=== PATIENT | female | born 1940 | race Caucasian/White ===

== ENCOUNTER 2016-08-19 17:07 | Inpatient (IN) | payer MEDICARE, OTHER ==
--- NOTE | ~2016-08-19 | HP ---
Unit #: [id number] #: [id number] Patient: SHAWN WEST [id number] [id number] [facility] [place] [facility]. [place], [place] [address] [id number] I MR#: [id number] NAME: SHAWN WEST ROOM: 302 Age: 75 Sex: F Admission Date: 08/19/2016 : 1940 Attending Physician: Octavio Teixeira M.D. Referring Physician: Ana Paula Hinkle A.P.R.N. Primary Care Physician: Ana Paula Hinkle A.P.R.N. HISTORY AND PHYSICAL CHIEF COMPLAINT Altered mental status. HISTORY OF PRESENTING ILLNESS A 75-year-old female with multiple medical problems was transferred from a senior care with altered mental status. Patient was not able to provide any history, so I have called patient's senior care and a nurse. She gave me most of the history. For the last two weeks or so, patient has had altered mental status which is gradually going down. She has been refusing hemodialysis, and she has been refusing to eat. Patient was even admitted at [facility] in June 2016 for something like the same kind of problem, mental status changes and history of fall. No complaint of nausea or vomiting, no complaint of any abdominal pain or chest pain, no complaint of diarrhea, and no other issues according to the nurse. We are not able to contact patient's family. She does not have the phone number for the family, and they do not visit her much. They were supposed to take her home, but that was somehow cancelled. PAST MEDICAL HISTORY 1. Hypertension. 2. Hyperlipidemia. 3. Chronic hepatitis C. 4. History of sarcoidosis. 5. End-stage renal disease, on hemodialysis. 6. Major depression. 7. Hyperparathyroidism. PAST SURGICAL HISTORY Hysterectomy. HOME MEDICATIONS 1. Vitamin B12 at 1000 mcg daily. 2. Aspirin 81 mg daily. 3. Renal softgel daily. 4. Famotidine 20 mg daily. 5. Ferrex 1 capsule daily. 6. Coreg 6.25 mg b.i.d. 7. Neurontin 100 mg twice daily. 8. Plaquenil 200 mg twice daily. 9. Remeron 7.5 mg at bedtime. 10. Atorvastatin 80 mg daily. 11. Levemir 20 units subcutaneous daily. 12. Glucagon p.r.n. 13. Nitroglycerin p.r.n. Unit #: [id number] #: [id number] Patient: SHAWN WEST 14. Dulcolax p.r.n. ALLERGIES No known drug allergies. SOCIAL HISTORY Patient is a resident of a senior care at this time. Unable to find whether she has any smoking history or alcohol history. REVIEW OF SYSTEMS As per History of Presenting Illness. PHYSICAL EXAMINATION GENERAL: She is lying comfortably in bed and does not seem to be in any respiratory distress. VITAL SIGNS: Blood pressure is 128/79, respiratory rate 18, pulse 101, and temperature 98.5. HEENT: Head is normocephalic. CHEST: Fair air entry. CARDIOVASCULAR: S1 and S2 positive. Regular rhythm. ABDOMEN: Soft. EXTREMITIES: Negative edema although exam was very limited. DIAGNOSTIC STUDIES LABORATORY: Ammonia is 34, sodium 136, potassium 4.4, chloride 107, BUN 48, and creatinine 5.9. Liver enzymes are stable. WBC 10.1, hemoglobin 10.7, hematocrit 31.7, and platelet count of 193,000. Lactic acid 1.1. Urine drug screen was negative. IMAGING: CT scan of the head without contrast was done which shows no acute intracranial abnormality suspected. ASSESSMENT AND PLAN Patient is being admitted to telemetry unit with a diagnosis of: 1. Altered mental status, possible metabolic encephalopathy, rule out any infectious etiology. 2. Chronic kidney disease, on hemodialysis. Patient has been very noncompliant, has been refusing in the senior care. Nephrology will be consulted, and hemodialysis will be continued. 3. Possible urinary tract infection. Urine culture is pending. 4. Diabetes mellitus type 2. Accu-Cheks a.c. and at bedtime with insulin sliding scale. 5. Hypertension which is stable. 6. Hyponatremia which has improved since yesterday. 7. Major depression. Dr. Kruger will be consulted. 8. Deep venous thrombosis prophylaxis is being started. 9. Social work evaluation will be done to get hold of patient's family. Discharge Summary from [facility] will be obtained. 1. Dictated by Anna Reddy TD: 08/20/2016 17:08 JOB #: [id number] Unit #: [id number] #: [id number] Patient: SHAWN WEST HISTORY AND PHYSICAL X Jane Christine MD X HISTORY AND PHYSICAL
--- NOTE | ~2016-08-19 | CR72 ---
[facility] A Service of [facility] RADIOLOGY TEXT RESULTS PATIENT: SHAWN WEST LOCATION: [facility] 302-01 : 42 UNIT #: [id number] AGE: [address]: Octavio Teixeira MD SEX: F ORDER DR: [id number] [facility] [address] [facility]. [place], [place] [address] [id number] I MR#: [id number] Acc #: [id number] NAME: SHAWN WEST : 1940 SEX: F STUDY DATE/TIME: 08/19/2016 17:00 UNIT: [address] ROOM: [facility] STUDY DESCRIPTION: CR Chest Single View Portable Attending Physician: Octavio Teixeira M.D. Referring Physician: Jacquelin Hinkle Ordering Physician: Alisson Rowland M.D. Primary Care Physician: Jacquelin Hinkle MEDICAL IMAGING REPORT This report is preliminary unless electronic signature is present EXAM Portable chest INDICATIONS 75-year-old female with altered mental status today, unconscious patient. COMPARISON 07/17/2016 FINDINGS There is bilateral interstitial prominence. This is stable. There are no new infiltrates. Heart size is stable. Suspected hiatal hernia. IMPRESSION No acute findings in the chest. No significant change from 07/17/2016. Dictated by... Chepe Faust M.D. THIS IS AN ELECTRONICALLY VERIFIED REPORT Chepe Faust M.D. at 08/20/2016 10:04 AM ARS/marry TD: 08/19/2016 22:56 JOB #: [id number] MEDICAL IMAGING REPORT COPY
--- NOTE | ~2016-08-19 | EKG ---
PATIENT: SHAWN WEST UNIT #: [id number] Ventricular Rate: 84 BPM Atrial Rate: 84 BPM P-R Interval: 144 ms QRS Duration: 84 ms Q-T Interval: 400 ms QTC Calculation(Bezet): 472 ms P Jumping [place]: 17 degrees Calculated R Jumping [place]: 11 degrees Calculated T Jumping [place]: 25 degrees Diagnosis Line: Normal sinus rhythm Diagnosis Line: Normal ECG Diagnosis Line: No previous ECGs available Diagnosis Line: Confirmed by MONA DE LOS SANTOS MD ([id number]) on 08/20/2016 Diagnosis Line: 7:11:35 AM INTERPRETING MD: MAGALI CASTILLO
--- NOTE | ~2016-08-19 | CO ---
Unit #: [id number] #: [id number] Patient: LAVERN AVALOS [id number] [facility] [address] [facility]. [place], [place] [address] [id number] I MR#: [id number] NAME: LAVERN AVALOS ROOM: 302 Age: 75 Sex: F Admission Date: 08/19/2016 : 1940 Attending Physician: Octavio Teixeira M.D. Primary Care Physician: Ana Paula Hinkle A.P.R.N. Consultation Date: 08/20/2016 CONSULTATION REPORT REASON FOR CONSULTATION Severe depression, anxiety. HISTORY OF PRESENT ILLNESS Ms. Lavern Avalos is a 75-year-old -Polish female seen in room 302 [address] of [facility]. The patient was admitted from a assisted on 08/19/16. The patient was admitted with the altered mental status. The patient was lying comfortably in bed, dressed in hospital attire. Patient constantly saying "somebody clean me." The patient seemed somewhat anxious, nervous. Patient was transferred from assisted with altered mental status. Patient was unable to provide any reliable information. Continues to repeat sentences of "somebody should clean me." The patient did not show any agitation, aggression. The patient was able to report that she lives in a assisted in [place], [place] but no other history available. PAST PSYCHIATRIC HISTORY Remarkable for history of depression, anxiety, possible dementia. MEDICAL HISTORY Remarkable for: 1. History of hypertension. 2. Hyperlipidemia. 3. Chronic hepatitis C. 4. History of scoliosis. 5. End stage renal disease, on hemodialysis. 6. Major depression. 7. Hyperparathyroidism. MEDICATION HISTORY The patient is on: 1. Vitamin B12. 2. Aspirin. 3. Renal softgel. 4. Famotidine. 5. Ferrex. 6. Coreg. 7. Neurontin. 8. Plaquenil. 9. Remeron 7.5 mg daily. 10. Atorvastatin. 11. Levemir. 12. Glucagon. 13. Nitroglycerin, Unit #: [id number] #: [id number] Patient: LAVERN AVALOS 14. Dulcolax. ALLERGIES No known drug allergies. FAMILY HISTORY/SOCIAL HISTORY The patient is a resident of a assisted. Unable to give any reliable history. No known history of any abuse or history of substance abuse known at this time. REVIEW OF SYSTEMS Complete review of systems is remarkable. MENTAL STATUS EXAMINATION GENERAL APPEARANCE: The patient is thin built, dressed casually in hospital attire, seems somewhat anxious, nervous, distressed. Attention span and concentration poor. Speech - patient has intelligible speech but somewhat incoherent. Orientation in place. Mood and affect labile. Thought process circumstantial. Thought content guarded, paranoid. Recent and remote memory poor. Language - able to name object. Fund of knowledge impaired. Insight and judgment fair to impaired. DIAGNOSIS PSYCHIATRIC 1. Major depressive disorder, recurrent, severe - F33.0. 2. 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 Rule out psychosis. SECONDARY DIAGNOSIS Deferred. MEDICAL DIAGNOSIS Please refer to H and P. ASSESSMENT/PLAN 1. Supportive psychotherapy and psychoeducation provided to patient but patient unable to comply a this time. 2. Recommending at this time to increase Remeron to 15 mg at bedtime and also advise Zyprexa 2.5 mg at bedtime for mood stabilization. We will continue to evaluate. If needed, consider additional medication. Please feel free to call if any questions. Telephone number [phone]. Dictated by... Anna Almaraz/lyssa TD: 08/21/2016 10:47 JOB #: [id number] Unit #: [id number] #: [id number] Patient: LAVERN AVALOS CONSULTATION REPORT X Shon Kruger MD X CONSULTATION REPORT
--- NOTE | ~2016-08-19 | DS ---
Unit #: [id number] #: [id number] Patient: SHAWN AVALOS [id number] [address] [address] [id number] I MR#: [id number] NAME: SHAWN AVALOS ROOM: 302 Age: 75 Sex: F Admission Date: 08/19/2016 : 1940 Discharge Date: 08/22/2016 Attending Physician: Octavio Teixeira M.D. Referring Physician: Ana aPula Hinkle A.P.R.N. Primary Care Physician: Ana Paula Hinkle A.P.R.N. DISCHARGE SUMMARY FINAL DIAGNOSES 1. Altered mental status which is resolved, most likely secondary to metabolic encephalopathy. 2. End-stage renal disease, on hemodialysis. 3. Diabetes mellitus type 2. 4. Hypertension. 5. Hyponatremia which is improved. 6. There was a question of urinary tract infection on admission but urine culture is negative. 7. Hyperlipidemia. 8. Major depression. 9. Probable major neurocognitive disorder due to Alzheimer disease, without behavioral disturbances. CONSULTATION DURING HOSPITALIZATION 1. Dr. Alonzo from neurology services. 2. Dr. Kruger from psychiatry services. 3. Dr. Barney Abreu from renal services. DISCHARGE MEDICATIONS Discharge medications are: 1. Vitamin B12 1000 mcg daily. 2. Nitroglycerin 0.4 mg sublingual p.r.n. 3. Zyprexa 2.5 mg q.h.s. 4. Aspirin 81 mg daily. 5. Pepcid 20 mg daily. 6. Iron tablets daily. 7. Levemir 10 units subcu daily. 8. Lipitor 80 mg q.h.s. 9. Coreg 12.5 mg p.o. b.i.d. 10. Remeron 15 mg q.h.s. 11. Glucagon p.r.n. 12. Atorvastatin 80 mg q.h.s. 13. Plaquenil 200 mg b.i.d. 14. Ativan 0.5 mg q.8 h. p.r.n. DIAGNOSTIC STUDIES LABORATORY WORKUP: Upon discharge sodium 140, potassium 4.1, chloride 100, BUN 23, creatinine 3.1, calcium 9.5. Urine culture is negative. CBC shows WBC 8.0, hemoglobin 11.7, hematocrit 35.3 and platelet count of 181. Hemoglobin A1C 8.3. Urinalysis on admission showed 3+ blood and 3+ leukocyte esterase, ammonia 34. BNP elevated to 3339. Urinalysis negative. ABG on admission was pH 7.44, pCO2 36, pO2 64, oxygen Unit #: [id number] #: [id number] Patient: SHAWN AVALOS saturation is 91%. HOSPITAL COURSE Ms. Shawn Avalos is a 75-year-old female who has multiple medical problems, was admitted from jail with altered mental status. Could not take any history from patient on admission, most of the history was taken from nurse from the jail. Today I have the patient's daughter, Conchita, at the bedside. Her phone number was wrong in the chart. That has been corrected. Patient had missed a few dialysis sessions, most likely that was the reason for altered mental status. Most likely it was metabolic encephalopathy. An infectious etiology was ruled out. Dr. Alonzo was consulted. CT scan was done which was normal. MRI was ordered but could not be done because did not have enough information but at this time, because the patient's mental status is resolved, is not needed at this time. Patient does have chronic kidney disease. Hemodialysis needs to be continued which was continued here by diagnostic radiologic technologist. Patient's insulin was held at this time because the patient's sugars were running kind of low. That could be another reason for her low mental status. Maybe will restart at 10 units and continue to observe. I have discussed with the patient's daughter at length about plan of care. She does verbalize understanding. DISCHARGE INSTRUCTIONS 1. The patient is being discharged to jail in stable condition. 2. Medication as per Med Rec. 3. Dr. Brandon to follow patient in jail. 4. PT/OT at jail. 5. Patient and patient's daughter have been encouraged to continue hemodialysis on routine basis as suggested by diagnostic radiologic technologist. They do verbalize understanding. Dictated by... Jane Christine M.D. Lisseth TD: 08/22/2016 15:25 JOB #: [id number] DISCHARGE SUMMARY X Jane Christine MD DISCHARGE SUMMARY
--- NOTE | ~2016-08-19 | CO ---
Unit #: [id number] #: [id number] Patient: SHAWN WEST [id number] [facility]. [place], [place] [address] [id number] I MR#: [id number] NAME: SHAWN WEST ROOM: 302 Age: 75 Sex: F Admission Date: 08/19/2016 : 1940 Attending Physician: Octavio Teixeira M.D. Primary Care Physician: Ana Paula Hinkle A.P.R.N. Consultation Date: 08/20/2016 CONSULTATION REPORT REFERRING MD Dr. Octavio Teixeira SOURCE OF INFORMATION From whatever I could gather from her transfer form. The patient has not been evaluated by the admitting team. History and physical not available. PROBLEM LIST Problem list from what I could gather is that she has: 1. History of end stage renal disease. 2. Diabetes mellitus type 2. 3. Sarcoidosis. 4. Hypertension. 5. Hepatitis C. The patient refused dialysis on Friday. She had a tearful weekend, did not sleep. HISTORY OF PRESENT ILLNESS This is a 75-year-old, right handed, -Nepalese female who actually, I believe, was evaluated at a facility and sent here for decreased level of consciousness. She comes in here with lethargy and decreased level of consciousness but this morning is much better, more awake. She knows she is in the hospital. She can tell me her name. She cannot tell me the time. I do not have baseline information available so far. She has been relatively afebrile. Her blood pressure has been relatively elevated with systolic as high as 189 and diastolic in the low 90s. Her head CT showed atrophy and her labs were significantly abnormal, specifically her pO2 was 64.1, her BUN was 48 but creatinine was 5.9 with estimated GFR of 7.3 to 7.4. Her BNP was 3339. H and H was 10.7 and 31.7. Urinalysis showed protein plus, 10-25 WBCs, but probably no bacteria seen. There is nothing that had been told that she was focal. There seemed to be sort of bruising left intraorbital area but CT has not shown any fractures. PAST MEDICAL HISTORY As discussed above. 1. She also has been diagnosed with hypercalcemia. 2. Diarrhea of unspecified type. 3. Unspecified protein calorie malnutrition, generalized muscle weakness and malaise. Unit #: [id number] #: [id number] Patient: SHAWN WEST ALLERGIES Advil. HOME MEDICATIONS 1. Vitamin B12. 2. Aspirin. 3. Renal softgel. 4. Famotidine. 5. Ferrex. 6. Coreg. 7. Neurontin. 8. Plaquenil. 9. Remeron. 10. Atorvastatin. 11. Levemir. 12. Glucagon. 13. Nitroglycerin. 14. Dulcolax. FAMILY HISTORY I cannot obtain. SOCIAL HISTORY Further details not available. Nothing suggesting alcohol, tobacco or drug use known to me. REVIEW OF SYSTEMS Could not be obtained because of her lack of cooperation. PHYSICAL EXAMINATION VITAL SIGNS: Temperature 98.9, pulse 80, respirations 18, blood pressure 145/83. O2 sats were 98% to 100%, weight of 111. NEUROLOGICAL EXAMINATION: The patient is arousable. She could tell me her name, she could tell me that she is in the hospital. She could name, she could follow commands. She is not oriented to time and fully to the place. Could not do registration and recall. Could not do further mini mental status evaluation. CRANIAL NERVE EXAMINATION: Does respond to threats in primary field. (1) questionable. Pupils seemed to be sluggishly reactive, about 3 mm. Eye movements seemed to be conjugate. I did not see any ptosis, I did not see any nystagmus. Extraocular movements seemed to be intact. Sensation on the face and scalp seemed to be normal. Hearing seemed to be intact. Tongue was midline. I could not visualize the oropharynx or uvula. Head turning was spontaneous. MOTOR EXAMINATION: Moving all extremities. Strength of at least 4/5. SENSORY EXAMINATION: Responds to soft touch and pain sensation. No extinction was seen. ROMBERG: Not evaluated. GAIT EXAMINATION: Deferred. REFLEXES: I could not get any reflexes. Toes are equivocal. COORDINATION: Questionable normal. DIAGNOSTIC STUDIES Labs and imaging studies reviewed personally. IMPRESSION Decreased level of consciousness in a patient who missed her dialysis and creatinine of 5.9 to 6 with estimated GFR of 7.3 to 7.4. Along with that, Unit #: [id number] #: [id number] Patient: SHAWN WEST maybe UTI and BNP of 3339 and I not been told about any prior neurologic issue. I will wait for the primary team to evaluate the patient. I want to know if there was anything focal reported when they admitted the patient and namely, but not limited, to seizures, focal neurologic episodes. There is nothing suggesting status epilepticus. There is nothing suggesting major infarct. She is otherwise very nonfocal. Her cognitive condition is not known to me. Also, there is nothing suggesting that she has a BRIEFCASE SEWER infection so I will wait for their evaluation to complete. I do recommend checking an MRI of the brain and will see how things go. Again, I will wait for the admitting team to let me know and the treatment will be based on that. Call me for any other questions, issues or concerns. Dictated by... Anna Pisano/lyssa TD: 08/20/2016 10:25 JOB #: [id number] CONSULTATION REPORT X Junior Alonzo MD X CONSULTATION REPORT
--- NOTE | ~2016-08-19 | CO ---
Unit #: [id number] #: [id number] Patient: LAVERN AVALOS [id number] [facility] [address] [facility]. [place], [place] [address] [id number] I MR#: [id number] NAME: LAVERN AVALOS ROOM: 302 Age: 75 Sex: F Admission Date: 08/19/2016 : 1940 Attending Physician: Octavio Teixeira M.D. Primary Care Physician: Jacquelin Hinkle Consultation Date: 08/22/2016 CONSULTATION REPORT REASON FOR CONSULTATION Followup. DISCUSSION Ms. Lavern Avalos is a 75-year-old female, seen in room 302 bed 1 at [facility] as a followup on 08/22/2016. The patient was lying comfortably, somewhat sleepy. The patient doing well according to the patient's daughter, who was at the bedside. The patient still confused, somewhat guarded. The patient is compliant with medication. The patient diagnosed with metabolic encephalopathy, end-stage renal disease on hemodialysis, and diabetes mellitus. The patient is currently taking Remeron 15 mg at bedtime, Ativan 0.5 q.8 hours p.r.n. for anxiety, and Zyprexa 2.5 mg at bedtime. REVIEW OF SYSTEMS Complete review of systems is unremarkable. MENTAL STATUS EXAMINATION General appearance, the patient dressed in hospital attire, thin built. Attention span and concentration, poor. Speech, the patient able to articulate. Orientation, unable to assess. Mood and affect, labile. Thought process, circumstantial. Thought content, guarded. Recent and remote memory, poor. Language, the patient has intelligible speech. Fund of knowledge, poor. Insight and judgment, impaired. DIAGNOSES Psychiatric: Delirium, F05; probable neurocognitive disorder secondary to Alzheimer disease with behavioral disturbances, F02.81. Secondary diagnosis: Deferred. ASSESSMENT/PLAN 1. Supportive psychotherapy and psychoeducation provided to the patient's family, the patient is unable to comprehend. 2. Advised to continue with current medication. The patient seems to be doing better, keeping her symptoms stable. Continue with Zyprexa 2.5 mg at bedtime, Remeron 15 mg at bedtime, and Ativan 0.5 mg q.8 hours p.r.n. for agitation and anxiety. Please feel free to call if any questions, telephone #[phone]. Dictated by... Shon Kruger M.D. Unit #: [id number] #: [id number] Patient: LAVERN AVALOS ROBERT/whitneyl TD: 08/23/2016 01:11 JOB #: [id number] CONSULTATION REPORT X Shon Kruger MD X CONSULTATION REPORT
--- NOTE | ~2016-08-19 | CO ---
Unit #: [id number] #: [id number] Patient: SHAWN AVALOS [id number] [address] [place], [place] [address] [id number] MR#: [id number] NAME: SHAWN AVALOS ROOM: 302 Age: 75 Sex: F Admission Date: 08/19/2016 : 1940 Attending Physician: Octavio Teixeira M.D. Primary Care Physician: Ana Paula Hinkle A.P.R.N. Consultation Date: 08/20/2016 CONSULTATION REPORT REASON FOR CONSULTATION Management of end stage renal disease. Ms. Avalos is a 75-year-old -[place] female followed by our service for end stage renal disease, maintained on outpatient hemodialysis. She is a very poor historian and so most of her history is obtained from the chart. Transfer summaries indicated the patient refused to go to dialysis on Friday and was noted to be tearful through the weekend. On the morning of the , she was found to be difficult to arouse and to keep awake. At some point in the afternoon, this was discussed with the provider and she was referred to the emergency room for further evaluation. On questioning, she is unable to describe what happened to her and currently when asked about a number of issues, denies everything. PAST MEDICAL HISTORY Accompanying records indicate: 1. History of end stage renal disease associated with diabetes mellitus. 2. She also has a history of sarcoidosis. 3. Hypertension. 4. Hepatitis C. 5. She is on Plaquenil making one wonder if she has a history of rheumatoid arthritis also. FAMILY HISTORY Unable to be obtained. SOCIAL HISTORY Noncontributory. She lives in a fci and has no access to alcohol or tobacco. REVIEW OF SYSTEMS I went through all review of systems to which the patient denied complaints in each subset. MEDICATIONS Information sent by the facility showed medications includin. Vitamin B12. 2. Aspirin. 3. Renagel. 4. Famotidine 20 mg p.o. daily. 5. Iron 150 mg p.o. daily. 6. Coreg 6.25 mg p.o. b.i.d. 7. Neurontin 100 mg b.i.d. 8. Plaquenil 200 mg b.i.d. Unit #: [id number] #: [id number] Patient: SHAWN AVALOS 9. Remeron 7.5 mg h.s. 10. Atorvastatin 80 mg h.s. 11. Levemir 20 units subcu q. a.m. 12. Nitroglycerin 0.4 sublingual p.r.n. 13. Docusate sodium p.r.n. 14. Dulcolax p.r.n. PHYSICAL EXAMINATION At time of evaluation, she was awake and alert and able to answer direct questions but unable to complete sentences when asked open-ended questions. VITAL SIGNS: She was afebrile at 98.9 degrees with blood pressure of 145/83 and a heart rate of 80s, respirations 18. GENERAL: She appeared in no distress. HEENT: Head was remarkable for a black eye on her left. There was no evident skeletal damage that I could determine. HEENT was grossly unremarkable. The neck was supple without adenopathy. There was no jugular venous distention. LUNGS: Clear to auscultation bilaterally. HEART:: Regular rate with a normal S1 and S2. No gallops are noted. ABDOMEN: Soft and nontender. No masses or organomegaly were noted. GENITAL/RECTAL: Deferred. She was noted to have a Kang catheter in place. EXTREMITIES: Showed her to have trace ankle edema but no thigh or flank edema. No significant joint deformities or joint effusions were noted. SKIN: Unremarkable except for the bruising around her eye. She had a hemodialysis access in her left upper arm with a good bruit. DIAGNOSTIC STUDIES LABORATORY: Notable for chemistry panel showing a creatinine of 5.9 with a potassium of 4.4 and CO2 of 21. Her calcium was 8.7. Other values were largely unremarkable. Hemoglobin was 10.7 with a white count of 10.1 and platelet count of 193. IMAGING: Chest x-ray and CT scan done at the time of admission were reviewed and found to be largely unremarkable except for severe chronic cerebral disease. IMPRESSION 1. Change in mental status: Given her small size and renal failure, it is quite possible that she may have had an adverse response to one or more of her medications including the gabapentin and/or the Remeron. I would recommend holding these for the time being and if she really seems to need them, to restart at a smaller dose. 2. End stage renal disease: Her chemistries are decent. We will dialyze her tomorrow as per her regular schedule. 3. History of hypertension: Her blood pressure at the moment is relatively decent. Will make no changes in this today. Dictated by... Barney Abreu M.D. REGINALD/lyssa TD: 08/21/2016 07:40 JOB #: [id number] Unit #: [id number] #: [id number] Patient: SHAWN AVALOS CONSULTATION REPORT X Barney Abreu Jr, MD X CONSULTATION REPORT
--- NOTE | ~2016-08-19 | CT71 ---
[facility] A Service of [facility] RADIOLOGY TEXT RESULTS PATIENT: SHAWN WEST LOCATION: [facility] 302- : 42 UNIT #: [id number] AGE: [address]: Octavio Teixeira MD SEX: F ORDER DR: [id number] [facility] [address] [place], [place] [address] [id number] I MR#: [id number] Acc #: [id number] NAME: SHAWN WEST : 1940 SEX: F STUDY DATE/TIME: 08/19/2016 17:46 UNIT: C3A PCU ROOM: 302 STUDY DESCRIPTION: CT Head Wo Contrast Attending Physician: Octavio Teixeira M.D. Referring Physician: Ana Paula Hinkle A.P.R.N. Ordering Physician: Alisson Rowland M.D. Primary Care Physician: Ana Paula Hinkle A.P.R.N. MEDICAL IMAGING REPORT This report is preliminary unless electronic signature is present EXAM Head CT without HISTORY New onset of confusion today, refused dialysis, could not wake patient up in penitentiary, history of diabetes and kidney disease. TECHNIQUE This CT exam was performed with one or more of the following radiation dose reduction techniques: Automatic exposure control, adjustment of mA and/or kV according to patient size, and iterative reconstruction. COMMENT Routine noncontrasted head CT is reviewed. The comparison study is from 07/17/2016. There is no displaced calvarial fracture. Visualized paranasal sinuses and mastoid air cells are essentially clear. Prominent atherosclerotic vascular calcifications at the base of the brain. There is generalized atrophy and extensive white matter disease, nonspecific, but probably due to small vessel disease, given history. Also probably chronic lacunar disease bilateral basal ganglia and thalami, and possibly also in the brainstem to a lesser extent. There is no intracranial mass effect. The basilar cisterns are patent. No obvious acute cortical infarct but if there is clinical concern for acute CVA and the patient is a candidate, the patient is best further assessed with a followup MRI. Patient has had cataract surgery bilaterally. IMPRESSION 1. No acute intracranial abnormality is suspected but if there is clinical concern for acute CVA, followup imaging is recommended preferably with MRI if the patient is a candidate. [facility] A Service of [facility] RADIOLOGY TEXT RESULTS PATIENT: SHAWN WEST LOCATION: C3A 302-01 : 42 UNIT #: [id number] AGE: [address]: Octavio Teixeira MD SEX: F ORDER DR: 2. Extensive probable sequelae of small vessel disease, atrophy and atherosclerotic vascular calcifications noted base of the brain. Dictated by... Martina Strickland M.D. THIS IS AN ELECTRONICALLY VERIFIED REPORT Martina Strickland M.D. at 08/20/2016 2:11 PM PATY/zachariah TD: 08/20/2016 00:18 JOB #: [id number] MEDICAL IMAGING REPORT COPY
[~2016-08-19 17:07] MED LIST: ASPIRIN81 MG PO; ATORVASTATIN CA80 MG PO; B-121000 MC1 PO; COREG6.25 MG PO; FAMOTIDINE20 M1 PO; FERREX 150 PLU1 EACH PO; LEVEMIR100 UNITS/ SUBQ; NEURONTIN100 MG PO; PLAQUENIL200 MG PO; REMERON PO; RENAL SOFTGEL1 MG PO
[2016-08-19 17:10] LABS: ARTERIAL BLD GAS O2 SATURATION 91.2 % (90.0-100.0); ARTERIAL BLOOD GAS CARBOXY HB 1.3 %sat (0.0-9.0); ARTERIAL BLOOD GAS HCO3 24.5 mmol/L; ARTERIAL BLOOD GAS MET HB 0.7 %sat (0.0-2.0); ARTERIAL BLOOD GAS pH 7.442 (7.350-7.450)
[2016-08-19 17:11] LABS: ARTERIAL BLOOD GAS ALLEN TEST POS; ARTERIAL BLOOD GAS ART SITE RIGHT RADIAL; ARTERIAL BLOOD GAS PO2 64.1 mmHg (80.0-100); ARTERIAL DRAW? YES
[2016-08-19 17:37] LABS: BASOPHIL% 0.3 % (0-2.5); EOSINOPHIL% 0.2 % (0.0-7.0); HEMATOCRIT 34.7 % (35.0-45.0); HEMOGLOBIN 11.3 gm/dL (12.0-16.0); LYMPHOCYTE# 0.8 X10e3 (1.0-3.5); LYMPHOCYTE% 6.5 % (17.0-45.0); MEAN CORPUSCULAR HEMOGLOBIN 29.5 PG (28-34); MEAN CORPUSCULAR HGB CONC 32.5 g/dL (30-36); MEAN PLATELET VOLUME 7.3 FL (6.5-11.5); MONOCYTE# 1.1 X10e3 (0-1.0); MONOCYTE% 9.7 % (3.0-12.0); NEUTROPHIL# 9.7 X10e3 (1.5-7.1); NEUTROPHIL% 83.3 % (40-75); PLATELET COUNT 230 X10e3 (140-420); RED BLOOD COUNT 3.82 X10e (3.90-5.30); RED CELL DISTRIBUTION WIDTH 15.5 % (11.0-15.5); WHITE BLOOD COUNT 11.6 X10e3 (4.0-10.5)
[2016-08-19 17:38] LABS: DIFF IND NO
[2016-08-19 17:53] LABS: INR 1.1; PARTIAL THROMBOPLASTIN TIME 27.3 SECONDS (23.5-31.3); PROTHROMBIN TIME (PATIENT) 11.7 SECONDS (9.6-11.5)
[2016-08-19 17:55] LABS: URINE SOURCE CLEAN CATCH
[2016-08-19 18:00] LABS: POC - CKMB 1.4 ng/mL (0.0-7.9); POC - TROPONIN <0.05 ng/mL (<=0.05)
[2016-08-19 18:01] LABS: URINE APPEARANCE CLEAR; URINE BILIRUBIN NEG (NEG); URINE BLOOD 1+ (NEG); URINE COLOR YELLOW; URINE GLUCOSE NEG (NEG); URINE KETONE NEG (NEG); URINE LEUKOCYTE ESTERASE NEG (NEG); URINE NITRATE NEG (NEG); URINE PROTEIN 3+ (NEG); URINE SPECIFIC GRAVITY 1.015 (1.003-1.035); URINE UROBILINOGEN 0.2 MG/DL (NEG)
[2016-08-19 18:04] LABS: U HYALINE CASTS AUWI 0-2 /[LPF]; URINE BACTERIA AUWI NEG (NEGATIVE); URINE SQUAMOUS EPITHELIAL CELL NONE SEEN /[HPF]; UWBCS1 AUWI 0-2 (0-5)
[2016-08-19 18:10] LABS: CULTURE INDICATED? NO
[2016-08-19 18:23] LABS: AMPHETAMINE NEG (NEG); BARBITURATES NEG (NEG); BENZODIAZEPINES NEG (NEG); COCAINE NEG (NEG); MARIJUANA NEG (NEG); OPIATES NEG (NEG); TRICYCLIC ANTIDEPRESSANTS NEG (NEG); U METHADONE NEG (NEG)
[2016-08-19 18:35] LABS: ALBUMIN SERUM 3.4 g/dL (3.5-5.0); ALKALINE PHOSPHATASE 64 U/L (32-92); ALT (SGPT) 31 U/L (10-40); AST (SGOT) 43 U/L (10-42); BILIRUBIN, DIRECT 0.1 mg/dL (0.0-0.2); BILIRUBIN,INDIRECT 0.6 mg/dL (0.0-0.9); BILIRUBIN,TOTAL 0.7 mg/dL (0.2-2.0); BLOOD UREA NITROGEN 41 mg/dL (9-23); BUN/CREATININE RATIO 6.83; CALCIUM SERUM 8.7 mg/dL (8.4-10.2); CARBON DIOXIDE 20 mmol/L (22-31); CHLORIDE 98 mmol/L (100-111); GLOM FILT RATE Estimated 7.3 mL/min (>60); GLUCOSE FASTING 93 mg/dL (70-110); LIPASE 27 U/L (22-51); PROTEIN TOTAL SERUM 8.9 g/dL (6.0-8.3); SODIUM 127 mmol/L (135-145)
[2016-08-19 18:36] LABS: ALCOHOL BLOOD <5 mg/dL (0)
[2016-08-19] MEDS ORDERED: GLUCAGEN1 MG/KIT SUBQ (19:06)
[2016-08-19] MEDS ORDERED: NITROGLYCERIN0.4 MG SL (19:07)
[2016-08-19] MEDS ORDERED: ENEMEEZ283 MG/EN1 PR (19:07)
[2016-08-19] MEDS ORDERED: DULCOLAX10 MG/SUPP PR (19:08)
[2016-08-20 05:24] LABS: BASOPHIL% 0.3 % (0-2.5); EOSINOPHIL# 0.1 X10e3 (0-0.7); EOSINOPHIL% 0.6 % (0.0-7.0); HEMATOCRIT 31.7 % (35.0-45.0); HEMOGLOBIN 10.7 gm/dL (12.0-16.0); LYMPHOCYTE# 1.2 X10e3 (1.0-3.5); LYMPHOCYTE% 12.3 % (17.0-45.0); MEAN CELL VOLUME 89.5 FL (83-96); MEAN CORPUSCULAR HEMOGLOBIN 30.1 PG (28-34); MEAN CORPUSCULAR HGB CONC 33.7 g/dL (30-36); MEAN PLATELET VOLUME 7.4 FL (6.5-11.5); MONOCYTE# 1.2 X10e3 (0-1.0); MONOCYTE% 11.9 % (3.0-12.0); NEUTROPHIL# 7.6 X10e3 (1.5-7.1); NEUTROPHIL% 74.9 % (40-75); PLATELET COUNT 193 X10e3 (140-420); RED BLOOD COUNT 3.54 X10e (3.90-5.30); RED CELL DISTRIBUTION WIDTH 15.2 % (11.0-15.5); WHITE BLOOD COUNT 10.1 X10e3 (4.0-10.5)
[2016-08-20 05:28] LABS: DIFF IND NO
[2016-08-20 06:05] LABS: BILIRUBIN,TOTAL 0.6 mg/dL (0.2-2.0); BUN/CREATININE RATIO 8.13; CALCIUM SERUM 8.7 mg/dL (8.4-10.2); CREATININE SERUM 5.9 mg/dL (0.6-1.4); GLOM FILT RATE Estimated 7.4 mL/min (>60); POTASSIUM 4.4 mmol/L (3.5-5.1); PROTEIN TOTAL SERUM 7.8 g/dL (6.0-8.3)
[2016-08-20 15:42] LABS: URINE APPEARANCE TURBID; URINE BILIRUBIN NEG (NEG); URINE BLOOD 3+ (NEG); URINE COLOR YELLOW; URINE GLUCOSE 500 MG/DL (NEG); URINE KETONE NEG (NEG); URINE LEUKOCYTE ESTERASE 3+ (NEG); URINE NITRATE NEG (NEG); URINE PH 5.5 (5-8); URINE PROTEIN 3+ (NEG); URINE UROBILINOGEN 0.2 MG/DL (NEG)
[2016-08-20 15:45] LABS: CULTURE INDICATED? YES; URBCS1 AUWI INNUM /[HPF] (0-2); URINE BACTERIA AUWI NEG (NEGATIVE); URINE SQUAMOUS EPITHELIAL CELL FEW /[HPF]; UWBCS1 AUWI INNUM (0-5)
[2016-08-21 07:08] LABS: BUN/CREATININE RATIO 8.43; CREATININE SERUM 6.4 mg/dL (0.6-1.4); GLOM FILT RATE Estimated 6.8 mL/min (>60); POTASSIUM 4.5 mmol/L (3.5-5.1)
[2016-08-22 05:17] LABS: HEMATOCRIT 35.3 % (35.0-45.0); HEMOGLOBIN 11.7 gm/dL (12.0-16.0); MEAN CELL VOLUME 89.8 FL (83-96); MEAN CORPUSCULAR HEMOGLOBIN 29.9 PG (28-34); MEAN CORPUSCULAR HGB CONC 33.2 g/dL (30-36); RED BLOOD COUNT 3.93 X10e (3.90-5.30); RED CELL DISTRIBUTION WIDTH 15.5 % (11.0-15.5)
[2016-08-22 07:15] LABS: BUN/CREATININE RATIO 7.41; CALCIUM SERUM 9.5 mg/dL (8.4-10.2); CREATININE SERUM 3.1 mg/dL (0.6-1.4); GLOM FILT RATE Estimated 15.7 mL/min (>60); POTASSIUM 4.1 mmol/L (3.5-5.1)
== END 2016-08-23 10:08 | DRG 70 ==
LOC: CED 17:07 → CEDOF 18:55 → C3A PCU 22:01
PROVIDERS: Hospitalist; Physician Assistant Medical; Student in an Organized Health Care Education/Training Program
PROC: 5A1D00Z (ICD-10-PCS; principal; 2016-08-20)
DX: G93.41 Metabolic encephalopathy (principal); N18.6 End stage renal disease; E11.22 Type 2 diabetes mellitus with diabetic chronic kidney disease; F33.2 Major depressive disorder, recurrent severe without psychotic features; I12.0 Hypertensive chronic kidney disease with stage 5 chronic kidney disease or end stage renal disease; E87.1 Hypo-osmolality and hyponatremia; E78.5 Hyperlipidemia, unspecified; G30.9 Alzheimer's disease, unspecified; F02.80 Dementia in other diseases classified elsewhere, unspecified severity, without behavioral disturbance, psychotic disturbance, mood disturbance, and anxiety; E21.3 Hyperparathyroidism, unspecified; Z90.710 Acquired absence of both cervix and uterus; Z91.19 Patient's noncompliance with other medical treatment and regimen; D86.9 Sarcoidosis, unspecified
CPT/HCPCS: 36600; 70450; 71010; 80048; 80053; 80076; 80307; 81003; 82140; 82553; 82803; 82947; 83036; 83605; 83690; 83735; 83880; 84484; 85025; 85027; 85610; 85730; 87086; 93005; 99285; G0480; J0360; J1644; J1650; J1815; J2060